=== PATIENT | male | born 1975 | race Caucasian/White ===

== ENCOUNTER 2017-05-13 09:00 | Emergency (ER) | payer BC ==
[~2017-05-13] VITALS: Ht 182.9 cm; Wt 102.1 kg
--- OUTSIDE RECORDS SUMMARY | 2017-05-13 09:06 | External Medical Summary Rpt | CCD ---
Author Author , NATHANIEL Organization [facility] Address Unknown Phone [email or web address] [email or web address] Care Maritime Engineer Name Role Phone Nadya Gamble MD, Unavailable Unavailable Nadya Gamble MD Purpose Continuity of Care Document - 01-15-2013 through 2016 Problems Code Diagnosis DOS Provider Status 592.0 592.0 01-15-2013 [place] [facility] Allergies, Adverse Reactions, Alerts Type Allergy to substance Adverse Reaction to Substance Substance Reaction Severity INGREDIENT: NO KNOWN Unknown Unknown - NO KNOWN DRUG ALLERGY Medications Na ND Rx Da Fi Fi Am Da Di Ph RX Ph St me C No te ll ll ou ys ag ar # ys at rm s nt no ma ic us Or Da si cy ia de te s n re d SO 00 08 0 No DI 40 -0 UM 97 5- Lo 98 20 ng CH 30 13 er LO 9 RI Ac DE ti ve 0. 9% SO LUIZA TI ON KE 00 08 0 No TO 40 -0 RO 93 5- Lo LA 79 20 ng C 50 13 er 30 1 Ac MG ti /M ve L AL ON 00 08 0 No DA 64 -0 NS 16 5- Lo ET 08 20 ng RO 02 13 er N 5 HC Ac L ti 4 ve MG /2 ML AL Sa 63 08 0 No li 80 -0 ne 70 5- Lo 10 20 ng Fl 07 13 er us 5 h Ac 10 ti ML ve Sy ri ng e HY [address] 40 -0 OM 91 5- Lo OR 31 20 ng PH 23 13 er ON 0 E Ac 2 ti MG ve /M L CA RP UJ CT GA 00 08 0 No OM 64 -0 ET 11 5- Lo PARSON 49 20 ng ZI 53 13 er NE 5 Ac 25 ti ve MG /M L AM PU L AC 51 08 0 No ET 07 -0 AM 90 5- Lo IN 16 20 ng OP 19 13 er HE 9H N Ac W/ ti CO ve DE IN E #3 TA K Vital Signs 01-15-2013 21:56 Name Value Interpretat Reference Comment ion Range Body 98.2 [degF] Temperature BP 80 mm[Hg] Diastolic BP Systolic 125 mm[Hg] Heart 60 /min Rate/Pulse O2% 97 % Respiratory 18 /min Rate 01-15-2013 20:30 Name Value Interpretat Reference Comment ion Range BP 80 mm[Hg] Diastolic BP Systolic 125 mm[Hg] Heart 60 /min Rate/Pulse O2% 97 % Respiratory 20 /min Rate Results Labs Lab Lab Date Result Refere Interp Status Commen Order Detail nces retati t Range on COMPREHENSIVE METABOLIC PANEL (01-15-2013 20:00) Glucose 98 74-106 complet 013 mg/dL ed Bld-mCn 20:00 c BUN 11 7-18 complet Bld-mCn 013 mg/dL ed c 20:00 Creat 1.2 0.8-1.3 complet SerPl-m 013 mg/dL ed Cnc 20:00 ESTIMAT 109 50-200 complet ED 013 ML/MIN ed CREATIN 20:00 INE CLEARAN CE GFR 69 Greater complet (ESTIMA 013 ML/MIN than ed NANDA) 20:00 60 Sodium 141 136-145 complet SerPl-s 013 mmoL/L ed Cnc 20:00 Potassi 3.7 3.5-5.1 complet um 013 mmoL/L ed SerPl-s 20:00 Cnc Chlorid 103 98-107 complet e 013 mmoL/L ed SerPl-s 20:00 Cnc CO2 28 21.0-32 complet SerPl-s 013 mmoL/L .0 ed Cnc 20:00 Calcium 9.2 8.5-10. complet 013 mg/dL 1 ed SerPl-m 20:00 Cnc Prot 7.7 6.4-8.2 complet SerPl-m 013 gm/dL ed Cnc 20:00 Albumin 4.3 3.4-5.0 complet 013 gm/dL ed SerPl-m 20:00 Cnc Globuli 3.4 1.3-3.2 complet n 013 gm/dL ed Ser-mCn 20:00 c Albumin 1.3 UNK 1.1-1.8 complet /Glob 013 ed SerPl-m 20:00 Rto Bilirub 0.5 0.2-1.0 complet 013 mg/dL ed SerPl-m 20:00 Cnc AST 17 U/L 15-37 complet SerPl-c 013 ed Cnc 20:00 ALT 42 U/L 30-65 complet SerPl-c 013 ed Cnc 20:00 ALP 99 U/L 50-136 complet SerPl-c 013 ed Cnc 20:00 CBC with AUTO DIFF (01-15-2013 20:00) WBC # 05-2 12.1 4.8-10. complet Bld 013 K/MM3 8 ed Auto 20:00 RBC # 01-15- 5.22 4.6-6.2 complet Bld 013 M/mm3 ed Auto 20:00 Hgb 01-15- 15.1 14.1-18 complet Bld-mCn 013 g/dL .0 ed c 20:00 Hct Fr 45.6 % 42.0-52 complet Bld 013 .0 ed 20:00 MCV RBC 87.2 fl 82.2-97 complet 013 .8 ed 20:00 MCH RBC 29.0 pg 27-31.2 complet Qn 013 ed Auto 20:00 MEAN 33.2 31.8-35 complet CORPUSC 013 g/dl .4 ed ULAR 20:00 HGB CONC RDW RBC 12.9 % 11.5-17 complet Auto 013 .5 ed 20:00 Platele 287 142-424 complet t Bld 013 K/mm3 ed Ql 20:00 Manual MEAN 8.4 fl 7.4-10. complet PLATELE 013 4 ed T 20:00 VOLUME Granulo 79.0 % 37.0-80 complet cytes 013 .0 ed Fr Bld 20:00 Auto LYMPH % 15.7 % 10-50 complet 013 ed 20:00 Monocyt 08-05-2 4.2 % 1.7-9.3 complet es Fr 013 ed Bld 20:00 Auto Eosinop 08-05-2 0.7 % 0.1-12. complet hil Fr 013 0 ed Bld 20:00 Auto Basophi 08-05-2 0.4 % 0.1-2.0 complet ls Fr 013 ed Bld 20:00 Auto Granulo 08-05-2 9.5 1.3-8.0 complet cytes # 013 K/mm3 ed Bld 20:00 Auto Lymphoc 08-05-2 1.9 0.7-4.5 complet ytes Fr 013 K/mm3 ed Bld 20:00 Auto Monocyt 08-05-2 0.5 0.1-1.0 complet es # 013 K/mm3 ed Bld 20:00 Auto Eosinop 08-05-2 0.1 0.0-0.4 complet hil # 013 K/mm3 ed Bld 20:00 Auto Basophi 08-05-2 0.0 0-0.2 complet ls # 013 K/MM3 ed Bld 20:00 Auto URINALYSIS/COMPLETE (01-15-2013 19:50) URINE 08-05-2 BROWN YELLOW complet COLOR 013 ed 19:50 URINE 08-05-2 Cloudy CLEAR complet APPEARA 013 ed NCE 19:50 URINE 08-05-2 NEGATIV NEG complet GLUCOSE 013 E ed - 19:50 DIPSTIC K URINE 08-05-2 1+ NEG complet BILIRUB 013 ed IN - 19:50 DIPSTIC K URINE 08-05-2 NEGATIV NEG complet KETONE 013 E mg/dL ed 19:50 URINE 08-05-2 1.025 1.005-1 complet SPECIFI 013 UNK .030 ed C 19:50 GRAVITY URINE 08-05-2 3+ NEG complet BLOOD 013 ed 19:50 URINE 08-05-2 6.0 UNK 5.0-8.5 complet PH 013 ed 19:50 URINE 08-05-2 1+ NEG complet PROTEIN 013 mg/dL ed - 19:50 DIPSTIC K URINE 08-05-2 0.2 NEG complet UROBILI 013 E.U./dL ed NOGEN - 19:50 DIPSTIC K URINE 08-05-2 NEGATIV NEG complet NITRATE 013 E ed - 19:50 DIPSTIC K URINE NEGATIV NEG complet LEUK 013 E ed ESTERAS 19:50 E URINE TNTC 0 complet RBC 013 rbc/hpf ed 19:50 URINE 1+ O complet BACTERI 013 ed A 19:50 URINE 1+ NONE complet MUCUS 013 ed 19:50 Encounters Encounter Start End Date Code Location Performer Type Date Emergency NATTY Gamble MD (ER) 3 20:18 3 21:57 [facility]
--- OUTSIDE RECORDS SUMMARY | 2017-05-13 09:06 | External Medical Summary Rpt ---
Author Author NATHANIEL Ramirez, NATHANIEL [employer] Organization [employer] Address Unknown Phone Unavailable Results Basic metabolic panel in Blood Observa Value Referen Units Interpr Notes Date tion ce etation Range Urea 7 - 18 mg/dL Normal No Julius 2 nitrogen informati 2017 7:48 [Mass/vol on in AM ume] in source Serum or data Plasma Calcium 8.5 - mg/dL Normal No Julius 2 [Mass/vol 10.1 informati 2017 7:48 ume] in on in AM Serum or source Plasma data Chloride 98 - 107 mmoL/L Normal No Julius 2 [Moles/vo informati 2017 7:48 lume] in on in AM Serum or source Plasma data Carbon 21.0 - mmoL/L Normal No Julius 2 dioxide, 32.0 informati 2017 7:48 total on in AM [Moles/vo source lume] in data Serum or Plasma Creatinin 0.70 - mg/dL Normal No Julius 2 e 1.30 informati 2017 7:48 [Mass/vol on in AM ume] in source Serum or data Plasma Estimated >60 ML/MIN No REFERENCE Julius 2 informati RANGE: 2017 7:48 glomerula on in >60 AM r source ML/MIN/1. filtratio data 73 SQUARE n rate METERSIf (GF this patient is -A merican, then multiply theresult by 1.210. Glucose 74 - 106 mg/dL High No Julius 2 [Mass/vol informati 2017 7:48 ume] in on in AM Serum or source Plasma data Potassium 3.5 - 5.1 mmoL/L Normal No Julius 2 informati 2017 7:48 [Moles/vo on in AM lume] in source Serum or data Plasma Sodium 136 - 145 mmoL/L Normal No Julius 2 [Moles/vo informati 2017 7:48 lume] in on in AM Serum or source Plasma data Parathyrin.intact [Mass/volume] in Serum or Plasma Observa Value Referen Units Interpr Notes Date tion ce etation Range Parathyri 15 - 65 pg/mL No Performed Julius 2 n.intact informati at: CB 2017 7:48 [Mass/vol on in - [facility] AM ume] in source Serum or data [place] [id number] [address] 0 [place], [place] [id number] Pipe Organ Installer: Brandon Payton PhD, Phone: [phone] Urate [Mass/volume] in Serum or Plasma Observa Value Referen Units Interpr Notes Date tion ce etation Range Urate 2.6 - 7.2 mg/dL Normal No Julius 2 [Mass/vol informati 2017 7:48 ume] in on in AM Serum or source Plasma data
--- OUTSIDE RECORDS SUMMARY | 2017-05-13 09:06 | External Medical Summary Rpt | CCD ---
Author Author , NATHANIEL Organization [facility] Address Unknown Phone [email or web address] Care Team Providers Care Alarm Security Or Surveillance Monitor Name Role Phone Nadya Gamble MD, Unavailable Unavailable Nadya Gamble MD Purpose Continuity of Care Document - 01-15-2013 through 2016 Problems Code Diagnosis DOS Provider Status 592.0 592.0 01-15-2013 [place] [facility] Allergies, Adverse Reactions, Alerts Type Allergy to [...] ve /M L CA RP UJ CT PA 00 08 0 No OM 64 -0 [...] Gamble MD (ER) 3 20:18 3 21:57 [facility]
--- OUTSIDE RECORDS SUMMARY | 2017-05-13 09:06 | External Medical Summary Rpt | CCD ---
Author Author [employer] Organization [employer] Address Unknown Phone Unavailable Purpose Continuity of Care Document - through 2016
--- OUTSIDE RECORDS SUMMARY | 2017-05-13 09:06 | External Medical Summary Rpt | CCD ---
Demographics Preferred Language Kiswahili Marital Status Unknown Lutheran Affiliation Unknown Race Unknown Ethnic Group Unknown Author Author , NATHANIEL ARMSTRONG Address Unknown Phone Immunization No patient found.
--- OUTSIDE RECORDS SUMMARY | 2017-05-13 09:06 | External Medical Summary Rpt | CCD ---
Demographics Preferred Language Luxembourgish Marital Status Unknown Mosque Affiliation Unknown Race Unknown Ethnic Group Unknown Author Author , NATHANIEL ARMSTRONG Address Unknown Phone Immunization No patient found.
--- OUTSIDE RECORDS SUMMARY | 2017-05-13 09:06 | External Medical Summary Rpt ---
[...] AM ume] in source Serum or data [address] [id number] [address] [place], [place] [id number] Timber Cutter: Brandon Payton PhD, Phone: [phone] Urate [Mass/volume] in Serum or Plasma Observa Value Referen Units Interpr Notes Date tion ce etation Range Urate 2.6 - 7.2 mg/dL Normal No Julius 2 [Mass/vol informati 2017 7:48 ume] in on in AM Serum or source Plasma data
[2017-05-13] MEDS ORDERED: SIMVASTATIN10 MG PO (09:18)
[2017-05-13] MEDS ORDERED: LISINOPRIL 10MG10 MG PO (09:18)
[2017-05-13] MEDS ORDERED: HYDROCODONE/APA1 TA8 PO (09:20)
[2017-05-13] MEDS ORDERED: LORAZEPAM1 MG/TABLE PO (09:21)
[2017-05-13 09:24] LABS: URINE BILIRUBIN - DIPSTICK NEGATIVE (NEG); URINE BLOOD NEGATIVE (NEG)
--- NOTE | 2017-05-13 09:25 | Urgent Treatment Center Report ---
History of Present Issue Date/Time Seen by Provider 05/13/17 0918 Visit Reason Pt arrived:Walked Presenting Problem:RIGHT LOW BACK PAIN X3 DAYS, DENIES INJURY, DENIES URINARY Location if Accident: Onset of symptoms date/time:/ or onset unknown for:MEDICAL HX UNKNOWN Have you (or family members/close friends) recently traveled outside the [place]? N If Yes, where/when: Have you had exposure to infectious disease within the past month? TB? Other? Specify: Patient state that he woke up about 3 days ago and noticed that he was having pain in his lower back area. State that he has an old injury to L-4 State that he noticed that when he tried to stand or walk the pain was worse. State that the also thought at first that it may be a kidney stone but the pain was different than what it was when he had kidney stones State that he thought the pain would get better however it hasn't and he has continued to have pain in his lower back area State that he does not recall doing anything to hurt his back he just woke up with the pain 3 days ago ALLERGIES Coded Allergies: No Known Allergies (05/13/17) Home Medications Reported Medications LISINOPRIL (Lisinopril) 10 MG PO DAILY Simvastatin 10 MG PO DAILY HYDROCODONE/ACETAMINOPHEN (LORTAB 5-325 (generic)) 1 TAB PO Q6HP PRN PAIN Lorazepam (Lorazepam 1MG) 1 MG PO QHS History Medical History General CAD? No Angina: No IA: No Hypertension? No Hyperlipidemia? No CHF? No DVT? No PE? No COPD? No Asthma? No Anemia? No GERD? No Gastric ulcers? No GI Bleed? No Hernia? No Thyroid Problems? No Hypothyroidism? No CVA? No Seizures? No Diabetes? No Renal Insuffiency? No UTI? No Stones? No BPH? No GB Disease: No Nephritic Syndrome? No Asplenia? No Hepatitis? No Sickle Cell Disease? No Arthritis? No Migraines? No Cataracts? No Glaucoma? No MRSA? No HIV? No TB? No Anxiety? No Depression? No Cancer? No More? No Immunization HX Ped.Immunizations UTD No DT/Tetanus UNKNOWN Surgical Hx Previous Surgery?Y KIDNEY STONES Social History Smoking Hx Smoker: Never Smoker Tobacco: No Alcohol Alcohol: No Review of Systems All Other Systems Reviewed and Negative Musculoskeletal back pain Physical Exam Vital Signs Vital Signs Date Time Temp Pulse Resp B/P Pulse O2 O2 Flow FiO2 Ox Delivery Rate 05/13 946 18 05/13 912 97.2 80 16 143/90 98 General Appearance normal appearance, WD/WN, no apparent distress Respiratory Status Yes: trachea midline, chest symmetrical, non tender chest. No: respiratory distress. Lung Sounds bilateral: normal breath sounds, lungs clear. Cardiovascular normal exam, regular rate/rhythm Back bowel/bladder continent, gait normal Neurologic alert, normal exam, oriented x 3 Medical Decision Making LABS/Meds/Orders Pt receiving controlled substance in ED? No Results/Orders Laboratory Tests 05/13/17 09: Urine Color YELLOW, Urine Appearance Clear, Urine pH 5.5, Ur Specific [place] 1.030, Urine Protein NEGATIVE, Urine Ketones NEGATIVE, Urine Blood NEGATIVE, Urine Nitrate NEGATIVE, Urine Bilirubin NEGATIVE, Urine Urobilinogen 0.2, Ur Leukocyte Esterase NEGATIVE, Urine Glucose NEGATIVE Current Medication Orders Sig/Bianca Start time Last Medication Dose Route Stop Time Status Admin Ketorolac 0 .STK-MED ONE 05/13 931 DC Tromethamine .ROUTE Ketorolac 60 MG ONCE ONE 05/13 930 DC 05/13 Tromethamine IM 05/13 931 0946 Orders Procedure Date/time Status [facility] URINE DIPSTICK 05/13 921 Complete XRAY/CT/US XRAY/CT/US XRAY L-spine XR interpretation by discussed w/radiologist Xray Results no fracture seen Progress [facility] Progress Notes Date 05/13/17 Time 0945 Comment Contacted Radiology to have Radiologist do official reading Departure Departure Time of Disposition 1048 Disposition DC Home or Self Care(routine) Clinical Impression Primary Impression: Muscle spasm Condition STABLE Patient Instructions DI for Muscle Spasm, DI for Muscle Strain Additional Instructions *Ibuprofen dung 6 hours with meal as needed for pain/inflammation *Remember you had a Toradol shot in the clinic today, which is similar to Motrin *Not additional anti-inflammatory like motrin, aleve, advil with the above amount of ibuprofen. You can still take Tylenol every 4 hours as needed if you need something else for pain *Ice 20 minutes every 2 hours for the first 48 hours after the initial injury followed by moist heat every 20 minutes 3-4 times a day to affected area *Muscle relaxer every 8 hours as needed for muscle spasms but remember, it WILL cause drowsiness You cannot take it and drive, operate machinery or care for small children. *Keep this area active, no movement leads to more stiffness, However take it easy and avoid heavy lifting pushing or pulling Discharge Counseling Counseled pt/family regarding diagnosis, test results, medications/RX, home care, follow up needs Prescriptions Current Visit Scripts Cyclobenzaprine Hcl (Flexeril) 10 MG PO TID #20 TAB Ibuprofen (Ibuprofen 800MG) 800 MG PO QIDP PRN pain #30 TAB at 1050
--- NOTE | 2017-05-13 10:42 | RADIOLOGY REPORT PS360 ---
EXAM: LUMBAR SPINE 5 VIEWS HISTORY: Low back pain pain ORDERING PHYSICIAN: TRICIA DORSEY APRN PATIENT AGE: 41 years COMPARISON: None FINDINGS: Normal alignment. No fracture or dislocation. No lytic or blastic change. There is straightening of the lumbar lordosis which could be due to muscle spasm. Mild degenerative disc disease is present at L2-L3. IMPRESSION: Straightening of lordosis with mild degenerative disc disease at L2-L3
[2017-05-13] MEDS ORDERED: FLEXERIL10 MG PO (10:50)
[2017-05-13] MEDS ORDERED: IBUPROFEN800 MG PO (10:50)
[2017-05-13 10:54] VITALS: BP 140/88
== END 2017-05-13 10:56 | disposition home or self-care (01) ==
LOC: UTC 09:00
PROVIDERS: Nurse Practitioner
DX: M62.830 Muscle spasm of back (principal)